=== PATIENT | male | born 1985 | race Caucasian/White ===

== ENCOUNTER 2023-01-16 08:52 | Emergency (ER) | payer SELFPAY ==
--- NOTE | ~2023-01-16 | XR_ITS ---
Right foot Technique: AP, oblique, and lateral views were obtained. Clinical History: Injury Findings: No acute fracture or dislocation is seen. Osseous alignment is anatomic. Joint spaces are p reserved without erosive or degenerative change. Soft tissues are unremarkable. Impression: Unremarkable right foot radiographs. Reviewed, dictated and finalized at location . Impression: Unremarkable right foot radiographs.
[2023-01-16 09:06] VITALS: BP 144/82; PULSE 68; RESP 16; TEMP 36.9; O2SAT 100
--- NOTE | 2023-01-16 09:49 | ED.GENADULT ---
HPI - General Adult General Chief complaint: Extremity Injury, Lower Stated complaint: Foot Injury Source: patient Mode of arrival: ambulatory Limitations: no limitations History of Present Illness HPI narrative: PATIENT PRESENTS FOR EVALUATION OF AN INJURY TO THE RIGHT FOOT THAT OCCURRED JUST PRIOR TO ARRIVAL. 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 HE WAS WEARING STEEL TOED BOOTS BUT THE METAL CAME IN CONTACT WITH A SOFT PORTION OF HIS FOOTWEAR. HE RATES HIS PAIN 6/10 IN SEVERITY. HE HAS SOME REDNESS THE AFFECTED AREA. HE IS UP-TO-DATE ON TETANUS. HE IS NOT DIABETIC. HE IS ABLE TO AMBULATE BUT STATES WEIGHTBEARING MAKES HIS PAIN WORSE. Related Data Home Medications Medication Instructions Recorded Confirmed No Home Medications 01/16/23 01/16/23 Allergies Allergy/AdvReac Type Severity Reaction Status Date / Time prochlorperazine AdvReac Unknown Muscle Verified 06/15/19 09:56 Spasms Review of Systems Review of Systems: CONSTITUTIONAL: DENIES FEVER, CHILLS, OR SWEATS. EYES: DENIES VISUAL CHANGES, REDNESS, OR DISCHARGE. ENT: DENIES RHINORRHEA, CONGESTION, SORE THROAT, OR OTALGIA. CARDIOVASCULAR: DENIES CHEST PAIN, PALPITATIONS, OR EDEMA. RESPIRATORY: DENIES COUGH OR DYSPNEA. GASTROINTESTINAL: DENIES ABDOMINAL PAIN, NAUSEA, VOMITING, OR DIARRHEA. GENITOURINARY: DENIES DYSURIA OR HEMATURIA. SKIN: REPORTS REDNESS TO THE DORSAL ASPECT OF THE RIGHT FOOT MUSCULOSKELETAL: REPORTS RIGHT FOOT PAIN NEUROLOGIC: DENIES HEADACHE, NUMBNESS, DIZZINESS, OR WEAKNESS. PSYCHIATRIC: DENIES ANXIETY OR DEPRESSION. 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 HEAD: NORMOCEPHALIC, ATRAUMATIC. EYES: PERRLA AND EOMI. ENT: NARES CLEAR, NO RHINORRHEA OR EPISTAXIS. MUCOUS MEMBRANES MOIST. OROPHARYNX WITHOUT TONSILLAR HYPERTROPHY EXUDATE OR OTHER LESIONS. BILATERAL TMS PEARLY RUBI NONBULGING NECK: SUPPLE. NO ADENOPATHY OR MASSES. NO CAROTID BRUITS OR JVD CHEST: CLEAR TO AUSCULTATION. NO RESPIRATORY DISTRESS. NO WHEEZES RALES OR RHONCHI HEART: REGULAR RATE AND RHYTHM. NO MURMUR HEARD. NORMAL PERIPHERAL PULSES. ABDOMEN: SOFT, NONTENDER, NONDISTENDED, NORMAL ACTIVE BOWEL SOUNDS. EXTREMITIES: ABLE TO DORSI AND PLANTAR FLEX THE RIGHT FOOT. ABLE TO WIGGLE ALL DIGITS OF THE RIGHT FOOT. NO TENDERNESS IN RIGHT ANKLE. MILD TENDERNESS NOTED IN AREA OF ERYTHEMA TO DORSAL ASPECT OF RIGHT FOOT SKIN: APPROXIMATELY 4 CM AREA OF ERYTHEMA TO THE DORSAL ASPECT OF THE RIGHT FOOT WITH A 3 MM SCABBED LESION IN THE CENTRAL ASPECT OF THIS NEURO: NO FOCAL DEFICITS. ALERT AND ORIENTED X3. PSYCH: NORMAL MOOD AND AFFECT. Course Course Emergency Course: THIS IS A 37-YEAR-OLD MALE WHO PRESENTED FOR EVALUATION OF AN INJURY TO THE RIGHT FOOT. X-RAY WAS NEGATIVE FOR FRACTURE. EXAM IS CONSISTENT WITH CONTUSION. UP-TO-DATE ON TETANUS. FOLLOW-UP OUTPATIENT THIS WEEK. GO TO THE ER FOR INTRACTABLE PAIN OR SIGNS OF INFECTION. PATIENT IN AGREEMENT CARE Level of Care: Express Care Visit Vital Signs Vital signs: Vital Signs Temperature 36.9 C 01/16/23 09:06 Pulse Rate 68 01/16/23 09
== END 2023-01-16 09:55 | disposition home or self-care (01) ==
PROVIDERS: Emergency Provider Nurse Practitioner; PCP Physician Assistant
DX: S90.31XA Contusion of right foot, initial encounter (principal); W20.8XXA Other cause of strike by thrown, projected or falling object, initial encounter
CPT/HCPCS: 73630; 99203; G0463

== ENCOUNTER 2025-09-25 23:39 | Emergency (ER) | payer OTHER, SELFPAY ==
--- NOTE | ~2025-09-25 | CT_ITS ---
CT ABDOMEN AND PELVIS WITHOUT CONTRAST Clinical History: L flank pain, R/O kidney stone Comparison: None Technique: Unenhanced axial images lung bases to symphysis pubis Coronal, sagittal reformats CT images acquired with automatic exposure control for dose reduction DLP: 211 mGy-cm Findings: Without intravenous contrast, sensitivity for detecting visceral parenchymal abnormalities decreased. Lung bases: Clear. Visualized heart and pericardium: Unremarkable. Liver: Unremarkable. Gallbladder: Unremarkable. Spleen: Unremarkable. Pancreas: Unremarkable. Adrenal glands: Unremarkable. Kidneys: Right kidney- No hydronephrosis. Tiny stones. Left kidney- mild hydronephrosis. Tiny stones. 4 mm UPJ stone Distal esophagus/stomach: Unremarkable. Small bowel loops: Normal caliber and wall thickness. Colon: Normal caliber and wall thickness. Normal RLQ appendix. Nodes: No enlarged nodes. Peritoneum: No ascites. No free intraperitoneal air. Urinary bladder: Unremarkable. Prostate: Unremarkable. Bones: No acute bony abnormality. Soft tissues: Unremarkable. Unopacified abdominal aorta: No aneurysmal dilatation. IMPRESSION: 1. Mild hydronephrosis left kidney due to 4 mm UPJ stone. 2. Small bilateral nephrolithiasis. Reviewed, dictated and finalized at location R. ONAL SECRETARY
[2025-09-25 23:42] VITALS: BP 144/86; PULSE 71; RESP 18; TEMP 36.3; O2SAT 97
[2025-09-26 01:52] VITALS: PULSE 74; RESP 14; O2SAT 98
[2025-09-26 02:01] LABS: Hematocrit 41.9 % (42.0-52.0); Hemoglobin 14.7 g/dL (14.0-18.0); Immature Granulocyte Percent A 0.3 % (0-0.5); Lymphocytes Absolute Auto 1.82 K/mm3 (0.9-3.2); Mean Corpuscular HGB Conc 35.1 g/dl (32-36); Mean Corpuscular Hemoglobin 30.7 pg (26-34); Mean Corpuscular Volume 87.5 fl (80-100); Nucleated Red Blood Cells Absolute Auto 0.000 K/mm3 (0.0-0.012); Nucleated Red Blood Cells Perc 0.0 % (0.0-0.2); Platelet Count Result 199 k/mm3 (150-375); Red Blood Count 4.79 M/mm3 (4.6-6.20); White Blood Count 7.9 K/mm3 (4.5-10.0)
[2025-09-26 02:03] LABS: Add Urine Microscopic? NO; Appearance Urine Clear (Clear); Glucose Urine UA Negative (Negative); Leukocyte Esterase Ur Negative LEU/UL (Negative); Nitrate Urine Negative (Negative); Specific Grav Ur 1.021 (1.001-1.035)
[2025-09-26 02:18] LABS: Alanine Aminotransferase 20 U/L (6-50); Albumin Level 4.3 g/dL (3.5-5.1); Alkaline Phosphatase 97 U/L (38-126); Anion Gap 8 mmol/L (4-12); Aspartate Amino Transferase 21 U/L (17-59); Bilirubin,Total 0.5 mg/dL (0.2-1.3); Blood Urea Nitrogen 17 mg/dL (9-20); Calcium 8.8 mg/dL (8.4-10.2); Carbon Dioxide 25 mmol/L (22-30); Chloride 102 mmol/L (98-107); Estimated CRCL calculation 64 ml/min; Estimated Glomerular Filt Rate 51; Glucose 125 mg/dL (65-110); Potassium 3.9 mmol/L (3.4-5.0); Sodium 135 mmol/L (137-145); Total Protein 7.3 g/dL (6.3-8.2)
--- NOTE | 2025-09-26 02:43 | ED_ITS ---
HPI - Male Genitourinary General Chief complaint: Urogenital-Male <Marge Davis APRN - Last Filed: 09/26/25 04:07> Stated complaint: L flank pain, hx stones <Marge Davis APRN - Last Filed: 09/26/25 04:07> Time Seen by Provider: 09/26/25 01:26 <Marge Davis APRN - Last Filed: 09/26/25 04:07> History of Present Illness HPI Narrative: Patient is a 40-year-old male who presents to the ER with left flank pain that started yesterday. He reports he has a history of kidney stones. Patient reports he has not been evaluated in [place] for kidney stones, as he used to live in [place]. He denies any other medical history relevant to this ER visit. Patient denies recent fevers, urinary symptoms, or hematuria. He reports his last bowel movement was yesterday and it was normal for him. Patient reports he has been taking ibuprofen at home without much relief. He reports the pain is intermittent and radiates from the left flank down towards his pelvis. <Marge Davis APRN - Last Filed: 09/26/25 04:07> Related Data Allergies/Adverse reactions: Allergies Allergy/AdvReac Type Severity Reaction Status Date / Time prochlorperazine AdvReac Unknown Muscle Verified 09/25/25 23:46 Spasms <Marge Davis APRN - Last Filed: 09/26/25 04:07> Review of Systems 2 Review of Systems: All systems reviewed & are unremarkable except as noted in HPI and below <Marge Davis APRN - Last Filed: 09/26/25 04:07> [facility] Past Medical History Medical History: Medical History No pertinent past medical history <Marge Davis APRN - Last Filed: 09/26/25 04:07> Surgical History Surgical History: Surgical History History of surgery on lower extremity <Marge Davis APRN - Last Filed: 09/26/25 04:07> Family History Family History: Family History Mother Family history non-contributory <Marge Davis APRN - Last Filed: 09/26/25 04:07> Social History Social History: Social History Living arrangements: with family 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 HEAD: Normocephalic, atraumatic. NECK: Supple. No adenopathy, no masses. RESPIRATORY: Airway patent, respirations nonlabored. Clear to auscultation bilaterally, no rales, rhonchi, wheezing. CARDIOVASCULAR: Regular rate and rhythm without murmurs, rubs, or gallops. Peripheral pulses 2+ and equal bilaterally. Minimal positive left CVA tenderness ABDOMINAL: Soft, nontender with palpation, nondistended, no hepatosplenomegaly. Normoactive BS. MUSCULOSKELETAL: Moves all extremities. Strength/ROM intact without gross deformities. SKIN: Warm, dry, normal color. No rashes. NEURO: A&O X3. Speech clear. Cranial nerves II-XII intact. No ataxic movements. PSYCHIATRIC: Appropriate mood and affect. Normal interaction. <Marge Davis APRN - Last Filed: 09/26/25 04:07> Course INTELLIGENCE OFFICER BASIC/PA Physician Supervision This visit was performed by both a physician and an APC. I performed all aspects of the MDM as documented. <Fabrizio Key DO - Last Filed: 09/26/25 04:43> Vital Signs Vital signs: Vital Signs Temperature 97.3 F L 09/25/25 23:42 Pulse Rate 71 09/25/25 23:42 Respiratory Rate 18 09/25/25 23:42 Blood Pressure 144/86 H 09/25/25 23:42 Pulse Oximetry 97 09/25/25 23:42 Oxygen Delivery Room Air 09/25/25 23:42 Temperature 97.3 F L 09/25/25 23:42 Pulse Rate 59 L 09/26/25 03:00 Respiratory Rate 17 09/26/25 03:00 Blood Pressure 126/61 09/26/25 03:00 Pulse Oximetry 98 09/26/25 03:00 Oxygen Delivery Room Air 09/25/25 23:42 <Marge Davis, FARROWING WORKER - Last Filed: 09/26/25 04:07> Vital Signs Temperature 97.3 F L 09/25/25 23:42 Pulse Rate 71 09/25/25 23:42 Respiratory Rate 18 09/25/25 23:42 Blood Pressure 144/86 H 09/25/25 23:42 Pulse Oximetry 97 09/25/25 23:42 Oxygen Delivery Room Air 09/25/25 23:42 Temperature 97.3 F L 09/25/25 23:42 Pulse Rate 59 L 09/26/25 03:00 Respiratory Rate 17 09/26/25 03:00 Blood Pressure 126/61 09/26/25 03:00 Pulse Oximetry 98 09/26/25 03:00 Oxygen Delivery Room Air 09/25/25 23:42 <Fabrizio Key, DO - Last Filed: 09/26/25 04:43> [facility] MDM Narrative Medical decision making narrative: Patient is a 40-year-old male who presents to the ER with left flank pain that started yesterday. He reports he has a history of kidney stones. Patient reports he has not been evaluated in [place] for kidney stones, as he used to live in [place]. He denies any other medical history relevant to this ER visit. Patient denies recent fevers, urinary symptoms, or hematuria. He reports his last bowel movement was yesterday and it was normal for him. Patient reports he has been taking ibuprofen at home without much relief. He reports the pain is intermittent and radiates from the left flank down towards his pelvis. Labs Ordered: CBC, CMP, UA Imaging Ordered: CT abdomen pelvis without contrast Medications Ordered: 1 L normal saline IV bolus, Zofran 4 mg IV, morphine 4 mg IV Results: Patient's CT scan indicates mild left hydronephrosis due to a 4 mm calculus in proximal left ureter just beyond the UVJ. There are two 3 mm nonobstructive caliceal calculi in the right kidney. No hydronephrosis of the right. There are also two 3 mm nonobstructing calyceal calculi in the left kidney. The urinary bladder is completely decompressed but otherwise unremarkable. The appendix is normal. Bowel loops are nondilated. No acute inflammatory changes are seen involving the bowel. The liver, gallbladder, pancreas, spleen, and adrenal glands are unremarkable. The aorta is not dilated. Skeletal structures are unremarkable. Diagnosis: L kidney stone Consults: Urology, outpatient Patient Education/Shared MDM: Results of lab work and imaging shared with patient. He endorses improvement of symptoms following medication administration. Extensive discussion between INTELLIGENCE OFFICER BASIC, pt and his . Pt reports he has had much worse kidney stones in the past and he doesn't think he needs immediate involvement with a urologist. He is comfortable following up with them as an outpatient. Pt reports I've passed two in the past. Patient strongly advised to maintain hydration status upon discharge and follow- up with urology as soon as possible for further evaluation and treatment. He will be discharged home with a prescription for Zofran, Flomax, and [place]. Strict return precautions provided. Patient verbalized understanding and is in agreement with plan. Vital signs stable at time of discharge. All questions answered. <Marge Davis APRN - Last Filed: 09/26/25 04:07> Differential Diagnosis Differential Diagnosis: Acute kidney injury, urinary tract infection, kidney stone <Marge Davis APRN - Last Filed: 09/26/25 04:07> Lab Data [facility] Lab Attestation statement: I personally reviewed the patient's lab results. <Marge Davis APRN - Last Filed: 09/26/25 04:07> Result diagrams: 09/26/25 01:49 09/26/25 01:49 <Marge Davis APRN - Last Filed: 09/26/25 04:07> Labs: Lab Results 09/26/25 09/26/25 Range/Units 01:49 01:50 WBC 7.9 (4.5-10.0) K/mm3 RBC 4.79 (4.6-6.20) M/mm3 Hgb 14.7 (14.0-18.0) g/dL Hct 41.9 L (42.0-52.0) % MCV 87.5 (80-100) fl MCH 30.7 (26-34) pg MCHC 35.1 (32-36) g/dl RDW 12.7 (11.5-14.5) % Plt Count 199 (150-375) k/mm3 MPV 9.9 (7.4-10.4) fl Immature Gran % (Auto) 0.3 (0-0.5) % Neut % (Auto) 64.6 (45.5-73.1) % Lymph % (Auto) 23.0 (18.3-44.2) % [place] % (Auto) 7.2 (2.6-8.5) % Eos % (Auto) 4.0 (0-4.4) % Baso % (Auto) 0.9 (0.2-1.2) % Lymph # (Auto) 1.82 (0.9-3.2) K/mm3 [place] # (Auto) 0.6 (0.1-0.6) K/mm3 Eos # (Auto) 0.3 (0-0.3) K/mm3 Baso # (Auto) 0.1 (0.0-0.1) K/mm3 Abs Immat Gran (auto) 0.02 (0.00-0.031) K/mm3 Absolute Neuts (auto) 5.1 (1.3-6.7) K/mm3 Absolute Nucleated RBC 0.000 (0.0-0.012) K/mm3 Nucleated RBC % 0.0 (0.0-0.2) % Sodium 135 L (137-145) mmol/L Potassium 3.9 (3.4-5.0) mmol/L Chloride 102 (98-107) mmol/L Carbon Dioxide 25 (22-30) mmol/L Anion Gap 8 (4-12) mmol/L BUN 17 (9-20) mg/dL Creatinine 1.51 H (0.7-1.3) mg/dL Estim Creat Clear Calc 64 ml/min Estimated GFR 51 L (59 - ) Glucose 125 H (65-110) mg/dL Calcium 8.8 (8.4-10.2) mg/dL Total Bilirubin 0.5 (0.2-1.3) mg/dL AST 21 (17-59) U/L ALT 20 (6-50) U/L Alkaline Phosphatase 97 (38-126) U/L Total Protein 7.3 (6.3-8.2) g/dL Albumin 4.3 (3.5-5.1) g/dL Urine Color Yellow (Yellow) Urine Appearance Clear (Clear) Urine pH 5.0 (5.0-9.0) Ur Specific [place] 1.021 (1.001-1.035) Urine Protein Negative (Negative) mg/dL Urine Glucose (UA) Negative (Negative) mg/dL Urine Ketones Trace H (Negative) mg/dL Ur Blood (Man) Negative (Negative) Urine Nitrate Negative (Negative) Urine Bilirubin Negative (Negative) Urine Urobilinogen 0.2 (<2.0) mg/dL Leukocyte Esterase Rfl Negative (Negative) ALICIA/UL <Marge Davis, FARROWING WORKER - Last Filed: 09/26/25 04:07> Lab Results 09/26/25 09/26/25 Range/Units 01:49 01:50 WBC 7.9 (4.5-10.0) K/mm3 RBC 4.79 (4.6-6.20) M/mm3 Hgb 14.7 (14.0-18.0) g/dL Hct 41.9 L (42.0-52.0) % MCV 87.5 (80-100) fl MCH 30.7 (26-34) pg MCHC 35.1 (32-36) g/dl RDW 12.7 (11.5-14.5) % Plt Count 199 (150-375) k/mm3 MPV 9.9 (7.4-10.4) fl Immature Gran % (Auto) 0.3 (0-0.5) % Neut % (Auto) 64.6 (45.5-73.1) % Lymph % (Auto) 23.0 (18.3-44.2) % [place] % (Auto) 7.2 (2.6-8.5) % Eos % (Auto) 4.0 (0-4.4) % Baso % (Auto) 0.9 (0.2-1.2) % Lymph # (Auto) 1.82 (0.9-3.2) K/mm3 [place] # (Auto) 0.6 (0.1-0.6) K/mm3 Eos # (Auto) 0.3 (0-0.3) K/mm3 Baso # (Auto) 0.1 (0.0-0.1) K/mm3 Abs Immat Gran (auto) 0.02 (0.00-0.031) K/mm3 Absolute Neuts (auto) 5.1 (1.3-6.7) K/mm3 Absolute Nucleated RBC 0.000 (0.0-0.012) K/mm3 Nucleated RBC % 0.0 (0.0-0.2) % Sodium 135 L (137-145) mmol/L Potassium 3.9 (3.4-5.0) mmol/L Chloride 102 (98-107) mmol/L Carbon Dioxide 25 (22-30) mmol/L Anion Gap 8 (4-12) mmol/L BUN 17 (9-20) mg/dL Creatinine 1.51 H (0.7-1.3) mg/dL Estim Creat Clear Calc 64 ml/min Estimated GFR 51 L (59 - ) Glucose 125 H (65-110) mg/dL Calcium 8.8 (8.4-10.2) mg/dL Total Bilirubin 0.5 (0.2-1.3) mg/dL AST 21 (17-59) U/L ALT 20 (6-50) U/L Alkaline Phosphatase 97 (38-126) U/L Total Protein 7.3 (6.3-8.2) g/dL Albumin 4.3 (3.5-5.1) g/dL Urine Color Yellow (Yellow) Urine Appearance Clear (Clear) Urine pH 5.0 (5.0-9.0) Ur Specific [place] 1.021 (1.001-1.035) Urine Protein Negative (Negative) mg/dL Urine Glucose (UA) Negative (Negative) mg/dL Urine Ketones Trace H (Negative) mg/dL Ur Blood (Man) Negative (Negative) Urine Nitrate Negative (Negative) Urine Bilirubin Negative (Negative) Urine Urobilinogen 0.2 (<2.0) mg/dL Leukocyte Esterase Rfl Negative (Negative) ALICIA/UL <Fabrizio Key, - Last Filed: 09/26/25 04:43> Imaging Data Attestation: I personally reviewed and interpreted this imaging study as follows: < Marge Davis APRN - Last Filed: 09/26/25 04:07> Radiologist's impression: Patient's CT scan indicates mild left hydronephrosis due to a 4 mm calculus in proximal left ureter just beyond the UVJ. There are two 3 mm nonobstructive caliceal calculi in the right kidney. No hydronephrosis of the right. There are also two 3 mm nonobstructing calyceal calculi in the left kidney. The urinary bladder is completely decompressed but otherwise unremarkable. The appendix is normal. Bowel loops are nondilated. No acute inflammatory changes are seen involving the bowel. The liver, gallbladder, pancreas, spleen, and adrenal glands are unremarkable. The aorta is not dilated. Skeletal structures are unremarkable. <Marge Davis APRN - Last Filed: 09/26/25 04:07> Discharge Plan Discharge Clinical Impression: Hydronephrosis of left kidney, Calculus of proximal left ureter, Flank pain, left side <Marge Davis APRN - Last Filed: 09/26/25 04:07> Patient Disposition: Home <Marge Davis APRN - Last Filed: 09/26/25 04:07> Condition: Stable <Marge Davis APRN - Last Filed: 09/26/25 04:07> Instructions: Antibiotic Form, Kidney Stones (ED), Flank Pain (ED) <Marge Davis APRN - Last Filed: 09/26/25 04:07> Additional Instructions: Please return to the ER with any worsening symptoms. Follow-up with urology as soon as possible for further evaluation and treatment. You may call [phone] to make a follow-up appointment. You may take Ibuprofen 800mg every eight hours and/or [place] for pain control. Please remember to drink lots of water! <Marge Davis APRN - Last Filed: 09/26/25 04:07> Patient Language: Belarusian <Marge Davis APRN - Last Filed: 09/26/25 04:07> Prescriptions: New tamsulosin 0.4 mg capsule 0.4 mg PO DAILY Qty: 7 0RF hydrocodone-acetaminophen 5-300 mg tablet 1 tablet PO Q6H PRN (Reason: pain) Qty: 10 0RF ondansetron 4 mg tablet,disintegrating 4 mg PO Q6H PRN (Reason: nausea and vomiting) Qty: 14 0RF <Marge Davis APRN - Last Filed: 09/26/25 04:07> Follow-up/Referrals: Jeremiah Og MD [Physician, Urology] Melba,MAURICE Espinoza [Primary Care Provider, Unknown] <Marge Davis APRN - Last Filed: 09/26/25 04:07> Time of Disposition: 04:06 <Marge Davis APRN - Last Filed: 09/26/25 04:07> 04:06 <Fabrizio Key DO - Last Filed: 09/26/25 04:43>
[2025-09-26] MEDS: ONDANSETRON INJ 4 MG/2 ML VIAL IV PUSH (02:55)
[2025-09-26] MEDS: SODIUM CHLORIDE 0.9% IV 1,000 ML 999 ML IV CONT (02:55)
[2025-09-26] MEDS: MORPHINE SULFATE (*CRX) 4 MG/ML INJ IV PUSH (02:55)
[2025-09-26 03:00] VITALS: BP 126/61; PULSE 59; RESP 17; O2SAT 98
[2025-09-26] MEDS: TAMSULOSIN HCL 0.4 MG CAPSULE PO (04:21)
[2025-09-26 05:02] VITALS: BP 140/86; PULSE 61; RESP 22; TEMP 36.6; O2SAT 96
== END 2025-09-26 04:25 | disposition home or self-care (01) ==
PROVIDERS: Emergency Provider Registered Nurse; PCP Physician Assistant
DX: N13.2 Hydronephrosis with renal and ureteral calculous obstruction (principal); Z87.442 Personal history of urinary calculi
CPT/HCPCS: 36415; 74176; 80053; 81003; 85025; 96361; 96374; 96375; 99284; A9270; J2270; J2405; J7030

== ENCOUNTER 2025-09-29 06:59 | Emergency (ER) | payer OTHER, SELFPAY ==
--- NOTE | ~2025-09-29 | CT_ITS ---
EXAM/PROCEDURE: CT abdomen pelvis wo con HISTORY: LT FLANK PAIN, known renal stones COMPARISON: 09/26/2025 TECHNIQUE: Noncontrast CT of the abdomen and pelvis FINDINGS: Mild to moderately severe left-sided hydronephrosis with 4 mm proximal left ureteral stone at or just beyond the UPJ not significantly change in position or appearance. Punctate mid and upper pole left-sided kidney stones also again noted. The remainder of the left ureter, urinary bladder and visualized right ureter unremarkable. No hydronephrosis on the right side. 2 nonobstructing punctate stones in the mid and upper pole of the right kidney. The remainder the exam is unchanged in appearance. IMPRESSION: Directed noncontrast exam demonstrating no significant interval change in mild to moderate left-sided hydronephrosis and proximal left ureteral 4 mm stone. Reviewed, dictated and finalized at location A. BLANKER OPERATOR
--- OUTSIDE RECORDS SUMMARY | 2025-09-29 07:02 | XMS_ITS | Clinical Summary ---
Author Organization [facility] Address [address] [place] [id number] Care Team Providers Care Facilities Administrator Name Role Phone Olga Reilly Primary Care Pr ovider Allergies Active Allergy Reactions Criticality Noted Date Comments Prochlorperazine Medications No known medications Active Problems Problem Noted Date Diagnosed Date Closed fracture of left distal tibia 08/28/2018 Atopic rhinitis 03/25/2014 Overview (01/26/2017): Allergic rhinitis Immunizations Immunization Administration Dates Next Due Influenza, Quadrivalent, Spl it, Preservative Free, Intramuscular 08/09/2016 Influenza, Trivalent, IM (MDV) 07/22/2013 TD Preservative Free 06/11/2013 Surgical History Surgery Date Site/Laterality Comments EYE SURGERY upper eyelid sutured WISDOM TOOTH EXTRACTION TIBIA FRACTURE SURGERY Left Medical History Medical History Date Comments No pertinent past medical history Family History Medical History Relation Name Comments Other Brother 1 dario Alive and well; Other Brother 2 miriam fatty liver dis ease; Other Father Alive and well; Hypertension Mother Hypertension; Other Mother Chrohn's diseae s; Heart disease Other Grandfather Heart disease; Relation Name Status Comments Brother 1 dario Alive Brother 2 miriam Father Alive Mother Other Grandfather Social History Tobacco Use Types Packs/Day Years Used Date Smoking Tobacco: Never Smokeless Tobacco: Never Tobacco Cessation:Counseling Given: No Alcohol Use Standard Drinks/Week Comments Yes 0 (1 standard drink = 0.6 oz pur e alcohol) rare Sex and Gender Information Value Date Recorded Sex Assigned at Not on file Legal Sex Male 10:12 AM INTERNAL CONSULTANT Gender Identity Male 10/05/2021 11:00 PM INTERNAL CONSULTANT Sexual Orientation Not on file Last Filed Vital Signs Vital Sign Reading Time Taken Comments Blood Pressure 152/90 01/25/2025 9:35 AM CDT Pulse 92 01/25/2025 9:35 AM CDT Temperature 36.8 C (98.2 F) 01/25/2025 9:35 AM CDT Respiratory Rate 20 01/25/2025 9:35 AM CDT Oxygen Saturation 99% 01/25/2025 9:35 AM CDT Inhaled Oxygen Concentration - - Weight 80.3 kg (177 lb) 01/25/2025 9:35 AM CDT Height 182.9 cm (6') 11/15/2021 2:11 PM INTERNAL CONSULTANT Body Mass Index 24.01 11/15/2021 2:11 PM INTERNAL CONSULTANT Plan of Treatment Health Maintenance Due Date Last Done Comments Depression Screening 1984 Hepatitis C Screening 1984 Varicella Vaccines (1 of 2 - 13+ 2-dose series) 1997 Regular Well Visit/Exam 18-64 2002 HPV Vaccines (1 - 3-dose SCDM series) 2011 DTaP/Tdap/Td Vaccine (6 - Tdap) 06/12/2013 06/11/2013, 06/10/1998, 04/26/1989, Additional history exists Covid-19 Vaccine ( - season) 2025 01/21/2021, 01/03/2021 Influenza Vaccine (#1) 2025 08/09/2016, 2012 Hepatitis B Screening Completed 09/06/2001, 986 Pneumococcal vaccine <65 Aged Out No longer eligible based on patient's age to complete this topic Medical Devices Implanted Type Area Health Promotion Coordinator Device Identifier Shelf Expiration Date Model / Serial / Lot Synthes .455s Expert 10mm 375mm Cannulated Proximal Bend Tibial Round Nail - [id number] Implanted:Qty: 2 on 09/06/2018 by Sergio Johnson MD at [facility] Left: Tibia Synthes I 04.034.455S / / Synthes 204.840 3.5mm 6mm 40mm 2.5mm Self Tap Small Hexagonal Socket Low Profile - [id number] Implanted:Qty: 1 on 09/06/2018 by Sergio Johnson MD at [facility] Left: Tibia Synthes I 204.840 / / Synthes 04.005.528 5mm 4.3mm 38mm Lock Self Tap Blunt Tip 2 Lead Tibial T25 Full - [id number] Implanted:Qty: 1 on 09/06/2018 by Sergio Johnson MD at [facility] Left: Tibia Synthes I 04.005.528 / / Synthes 04.005.526 5mm 4.3mm 36mm Lock Self Tap Blunt Tip 2 Lead Tibial T25 Full - [id number] Implanted:Qty: 1 on 09/06/2018 by Sergio Johnson MD at [facility] Left: Tibia Synthes I 04.005.526 / / Synthes 04.005.522 5mm 4.3mm 32mm Lock Self Tap Blunt Tip 2 Lead Tibial T25 Full - [id number] Implanted:Qty: 1 on 09/06/2018 by Sergio Johnson MD at [facility] Left: Tibia Synthes I 04.005.522 / / Synthes 04.005.534 5mm 4.3mm 44mm Lock Self Tap Blunt Tip 2 Lead Tibial T25 Full - [id number] Implanted:Qty: 2 on 09/06/2018 by Sergio Johnson MD at [facility] Left: Tibia Synthes I 04.005.534 / / Insurance [facility] [id number] [place] [address] [phone] [place] [address] Advance Directives For more information, please contact: [phone] * Full Code (Latest Code Status on File) Date Activated Date Inactivated Comments 09/06/2018 12:45 PM 09/08/2018 4:27 PM Care Teams Facilities Administrator Relationship Specialty Start Date End Date Olga Reilly PA PCP - General Physician Beam Saw Operator 08/29/18
--- OUTSIDE RECORDS SUMMARY | 2025-09-29 07:02 | XMS_ITS | Clinical Summary ---
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 Gender Identity Not on file Sexual Orientation Not on file Plan of Treatment Health Maintenance Due Date Last Done Comments Hepatitis C Virus (HCV) Screening 1984 TdaP Immunization 1984 Hepatitis B Immunization (3 of 3 - 3-dose series) 11/01/2001 09/06/2001, 06/02/1986 Human Papillomavirus (HPV) Immunization (1 - 3-dose SCDM series) 2011 Influenza Immunization (#1) 2025 SARS-COV-2 Immunization ( season) 2025 Respiratory Syncytial Virus (RSV) Immunization (Adult) (1 - 1-dose 75+ series) 2059 DTaP/Tdap/Td Immunization Discontinued 1997, 04/26/1989, 11/11/1985, Additional history exists Meningococcal Immunization (ACWY) Aged Out No longer eligible based on patient's age to complete this topic Pneumococcal Immunization Combined Aged Out No longer eligible based on patient's age to complete this topic Rotavirus Immunization Aged Out No lo nger eligible based on patient's age to complete this topic
--- OUTSIDE RECORDS SUMMARY | 2025-09-29 07:02 | XMS_ITS | Clinical Summary ---
Author Organization [facility] lin Address [address] [place] [address] Care Team Providers Care Apprentice Cosmetologist Name Role Phone No, Pcp COMPOSITE ENGINEER Primary Care Provider Unavailabl e Social History Tobacco Use Types Packs/Day Years Used Date Smoking Tobacco: Never Assessed Sex and Gender Information Value Date Recorded Sex Assigned at Not on file Legal Sex Male 10:03 AM EDT Gender Identity Not on file Sexual Orientation Not on file Plan of Treatment Not on file Medical Devices Not on file Care Teams Apprentice Cosmetologist Relationship Specialty Start Date End Date No, Pcp, COMPOSITE ENGINEER N/A Do not use PCP - General Family Medicine 07/19/20
[2025-09-29 07:16] VITALS: BP 148/96; PULSE 68; RESP 16; TEMP 36.4; O2SAT 98
--- NOTE | 2025-09-29 08:02 | ED.GENADULT ---
HPI - General Adult General Chief complaint: Urogenital-Male Stated complaint: kidney stones Time Seen by Provider: 09/29/25 08:01 History of Present Illness HPI narrative: 40-year-old male presents emergency department for worsening flank pain. Is associated nausea nonbilious nonbloody vomiting. He has been taking Zofran and Flomax minimal relief. Has a history kidney stones states this feels just like his kidney stones he has never required intervention for lithotripsy. Denies any fevers chills no rash states the pain is severe radiates into his groin. 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 EYES: EOMI, conjunctiva normal ENT: Hearing grossly intact LUNGS: Nonlabored breathing. HEART: [Regular rate and rhythm] ABD: [Soft], [nontender to palpation] he does have flank tenderness on the right. No skin changes. EXT: Normal range of motion SKIN: [No rashes or lesions.] NEURO: [Alert. No gross focal sensory or strength deficits.] PSYCH: Normal affect Course Vital Signs Vital signs: Vital Signs Temperature 36.4 C 09/29/25 07:16 Pulse Rate 68 09/29/25 07:16 Respiratory Rate 16 09/29/25 07:16 Blood Pressure 148/96 H 09/29/25 07:16 Pulse Oximetry 98 09/29/25 07:16 Oxygen Delivery Room Air 09/29/25 07:16 Temperature 36.4 C 09/29/25 07:16 Pulse Rate 70 09/29/25 09:43 Respiratory Rate 18 09/29/25 09:43 Blood Pressure 125/85 09/29/25 09:43 Pulse Oximetry 97 09/29/25 09:43 Oxygen Delivery Room Air 09/29/25 07:16 MDM Differential Diagnosis Differential Diagnosis: 40-year-old male presents with flank pain. Suspect renal colic but potentially complicated by infectious process or hydronephrosis less likely acute renal failure. Will obtain IV access basic labs repeat CT abdomen pelvis without IV contrast multimodal pain control implant for evaluation after workup treatment. Results and re-evaluation On re-evaluation the patient feels much improved. Tolerating oral intake. CT scan shows 4 mm obstructing stone but urine without any evidence of infection. Otherwise labs again reviewed within appropriate limits. Will send him home with Toradol for pain, ARDS prescriptions for [place] and Zofran and Flomax. He has follow-up with Urology. Otherwise all questions answered her questions discussed elevated if he develops any new or concerning symptoms. Discharged in stable condition Medical Records I have reviewed the following patient records and this information was taken into consideration when formulating the assessment and plan.: previous labs and previous ER visits Lab Data [facility] Lab Attestation statement: I personally reviewed the patient's lab results. 09/29/25 08:13 09/29/25 08:13 Labs: Lab Results 09/29/25 Range/Units 08:13 WBC 5.1 (4.5-10.0) K/mm3 RBC 5.00 (4.6-6.20) M/mm3 Hgb 15.2 (14.0-18.0) g/dL Hct 43.9 (42.0-52.0) % MCV 87.8 (80-100) fl MCH 30.4 (26-34) pg MCHC 34.6 (32-36) g/dl RDW 12.3 (11.5-14.5) % Plt Count 206 (150-375) k/mm3 MPV 9.9 (7.4-10.4) fl Immature Gran % (Auto) 0.2 (0-0.5) % Neut % (Auto) 70.2 (45.5-73.1) % Lymph % (Auto) 19.2 (18.3-44.2) % [place] % (Auto) 6.5 (2.6-8.5) % Eos % (Auto) 2.9 (0-4.4) % Baso % (Auto) 1.0 (0.2-1.2) % Lymph # (Auto) 0.98 (0.9-3.2) K/mm3 [place] # (Auto) 0.3 (0.1-0.6) K/mm3 Eos # (Auto) 0.2 (0-0.3) K/mm3 Baso # (Auto) 0.1 (0.0-0.1) K/mm3 Abs Immat Gran (auto) 0.01 (0.00-0.031) K/mm3 Absolute Neuts (auto) 3.6 (1.3-6.7) K/mm3 Absolute Nucleated RBC 0.000 (0.0-0.012) K/mm3 Nucleated RBC % 0.0 (0.0-0.2) % Sodium 134 L (137-145) mmol/L Potassium 4.2 (3.4-5.0) mmol/L Chloride 100 (98-107) mmol/L Carbon Dioxide 28 (22-30) mmol/L Anion Gap 6 (4-12) mmol/L BUN 18 (9-20) mg/dL Creatinine 1.26 (0.7-1.3) mg/dL Estim Creat Clear Calc 76 ml/min Estimated GFR > 60 (59 - ) Glucose 101 (65-110) mg/dL Calcium 9.1 (8.4-10.2) mg/dL Total Bilirubin 0.8 (0.2-1.3) mg/dL AST 30 (17-59) U/L ALT 28 (6-50) U/L Alkaline Phosphatase 89 (38-126) U/L Total Protein 7.7 (6.3-8.2) g/dL Albumin 4.4 (3.5-5.1) g/dL Lipase 70 (23-300) U/L Urine Color Yellow (Yellow) Urine Appearance Clear (Clear) Urine pH 6.0 (5.0-9.0) Ur Specific [place] 1.019 (1.001-1.035) Urine Protein Negative (Negative) mg/dL Urine Glucose (UA) Negative (Negative) mg/dL Urine Ketones Negative (Negative) mg/dL Ur Blood (Man) 2+ H (Negative) Urine Nitrate Negative (Negative) Urine Bilirubin Negative (Negative) Urine Urobilinogen 1.0 (<2.0) mg/dL Leukocyte Esterase Rfl Negative (Negative) ALICIA/UL Urine RBC 51-100 H (0-2) /hpf Urine WBC 0-5 (0-3) /hpf Ur Squamous Epith Cells None seen (Few) /hpf Urine Bacteria None seen /hpf Urine Casts 0-2 Imaging Data Radiologist's impression: ITS Impressions Abdomen/Pelvis CT 09/29/25 08:53 IMPRESSION: Directed noncontrast exam demonstrating no significant interval change in mild to moderate left-sided hydronephrosis and proximal left ureteral 4 mm stone. Discharge Plan Discharge Clinical Impression: Kidney stone Patient Disposition: Home Condition: Stable Instructions: Kidney Stones (ED) Patient Language: Vietnamese Prescriptions: New ketorolac 10 mg tablet 10 mg PO Q8H PRN (Reason: pain) Qty: 14 0RF Rx Instructions: maximum total duration of 5 days from all oral, intranasal, or parenteral formulations No Action tamsulosin 0.4 mg capsule 0.4 mg PO DAILY Qty: 7 0RF hydrocodone-acetaminophen 5-300 mg tablet 1 tablet PO Q6H PRN (Reason: pain) Qty: 10 0RF ondansetron 4 mg tablet,disintegrating 4 mg PO Q6H PRN (Reason: nausea and vomiting) Qty: 14 0RF Follow-up/Referrals: Melba,MAURICE Espinoza [Primary Care Provider, Unknown] Stand Alone Forms: Work/School Release IP Time of Disposition: 09:32
[2025-09-29 08:22] LABS: Hematocrit 43.9 % (42.0-52.0); Hemoglobin 15.2 g/dL (14.0-18.0); Immature Granulocyte Percent A 0.2 % (0-0.5); Lymphocytes Absolute Auto 0.98 K/mm3 (0.9-3.2); Mean Corpuscular HGB Conc 34.6 g/dl (32-36); Mean Corpuscular Hemoglobin 30.4 pg (26-34); Mean Corpuscular Volume 87.8 fl (80-100); Nucleated Red Blood Cells Absolute Auto 0.000 K/mm3 (0.0-0.012); Nucleated Red Blood Cells Perc 0.0 % (0.0-0.2); Platelet Count Result 206 k/mm3 (150-375); Red Blood Count 5.00 M/mm3 (4.6-6.20); White Blood Count 5.1 K/mm3 (4.5-10.0)
[2025-09-29 08:25] LABS: Add Urine Microscopic? YES; Appearance Urine Clear (Clear); Glucose Urine UA Negative (Negative); Leukocyte Esterase Ur Negative LEU/UL (Negative); Nitrate Urine Negative (Negative); Non Pathogenic Casts 0-2; Specific Grav Ur 1.019 (1.001-1.035)
[2025-09-29] MEDS: HYDROmorphone HCL INJ (*CRX) 1 MG/ML SYR 0.5 MG IV PUSH (08:31)
[2025-09-29] MEDS: KETOROLAC 30 MG/ML VIAL (*BKC) IV PUSH (08:32)
[2025-09-29] MEDS: ONDANSETRON INJ 4 MG/2 ML VIAL IV PUSH (08:32)
[2025-09-29 08:36] VITALS: BP 140/92; PULSE 73; RESP 18; O2SAT 99
[2025-09-29 08:46] LABS: Alanine Aminotransferase 28 U/L (6-50); Albumin Level 4.4 g/dL (3.5-5.1); Alkaline Phosphatase 89 U/L (38-126); Anion Gap 6 mmol/L (4-12); Aspartate Amino Transferase 30 U/L (17-59); Bilirubin,Total 0.8 mg/dL (0.2-1.3); Blood Urea Nitrogen 18 mg/dL (9-20); Calcium 9.1 mg/dL (8.4-10.2); Carbon Dioxide 28 mmol/L (22-30); Chloride 100 mmol/L (98-107); Estimated CRCL calculation 76 ml/min; Estimated Glomerular Filt Rate > 60; Glucose 101 mg/dL (65-110); Lipase 70 U/L (23-300); Potassium 4.2 mmol/L (3.4-5.0); Sodium 134 mmol/L (137-145); Total Protein 7.7 g/dL (6.3-8.2)
[2025-09-29 09:43] VITALS: BP 125/85; PULSE 70; RESP 18; O2SAT 97
== END 2025-09-29 09:49 | disposition home or self-care (01) ==
PROVIDERS: Emergency Provider Emergency Medicine; PCP Physician Assistant
DX: N13.2 Hydronephrosis with renal and ureteral calculous obstruction (principal); Z87.442 Personal history of urinary calculi
CPT/HCPCS: 36415; 74176; 80053; 81001; 83690; 85025; 96374; 96375; 99284; J1171; J1885; J2405

== ENCOUNTER 2025-10-12 08:51 | Emergency (ER) | payer OTHER, SELFPAY ==
--- NOTE | ~2025-10-12 | CT_ITS ---
CT ABDOMEN AND PELVIS WITHOUT CONTRAST Clinical History: LLQ pain, hx stone Comparison: 09/29/2025 Technique: Unenhanced axial images lung bases to symphysis pubis Coronal, sagittal reformats CT images acquired with automatic exposure control for dose reduction DLP: 232 mGy-cm Findings: Without intravenous contrast, sensitivity for detecting visceral parenchymal abnormalities decreased. Lung bases: Clear. Visualized heart and pericardium: Unremarkable. Liver: Unremarkable. Gallbladder: Unremarkable. Spleen: Unremarkable. Pancreas: Unremarkable. Adrenal glands: Unremarkable. Kidneys: Right kidney- No hydronephrosis. Small stone. Left kidney- mild hydronephrosis. Small stone. Distal esophagus/stomach: Unremarkable. Small bowel loops: Normal caliber and wall thickness. Colon: Normal caliber and wall thickness. Normal RLQ appendix. Nodes: No enlarged nodes. Peritoneum: No ascites. No free intraperitoneal air. Urinary bladder: 5 mm stone left UVJ. Prostate: Unremarkable. Bones: No acute bony abnormality. Soft tissues: Unremarkable. Unopacified abdominal aorta: No aneurysmal dilatation. IMPRESSION: 1. Mild hydronephrosis left kidney due to 5 mm stone at UVJ, that has progressed from UPJ on prior scan. 2. Small bilateral nephrolithiasis. Reviewed, dictated and finalized at location [facility] IMPRESSION: 1. Mild hydronephrosis left kidney due to 5 mm stone at UVJ, that has progress ed from UPJ on prior scan. 2. Small bilateral nephrolithiasis.
[2025-10-12 09:01] VITALS: BP 160/94; PULSE 76; RESP 20; TEMP 36.4; O2SAT 99
[2025-10-12 09:22] LABS: Hematocrit 41.8 % (42.0-52.0); Hemoglobin 14.7 g/dL (14.0-18.0); Immature Granulocyte Percent A 0.4 % (0-0.5); Lymphocytes Absolute Auto 1.50 K/mm3 (0.9-3.2); Mean Corpuscular HGB Conc 35.2 g/dl (32-36); Mean Corpuscular Hemoglobin 30.4 pg (26-34); Mean Corpuscular Volume 86.5 fl (80-100); Nucleated Red Blood Cells Absolute Auto 0.000 K/mm3 (0.0-0.012); Nucleated Red Blood Cells Perc 0.0 % (0.0-0.2); Platelet Count Result 216 k/mm3 (150-375); Red Blood Count 4.83 M/mm3 (4.6-6.20); White Blood Count 4.9 K/mm3 (4.5-10.0)
[2025-10-12 09:24] LABS: Add Urine Microscopic? YES; Appearance Urine Clear (Clear); Glucose Urine UA Negative (Negative); Leukocyte Esterase Ur Negative LEU/UL (Negative); Nitrate Urine Negative (Negative); Non Pathogenic Casts 0-2; Specific Grav Ur 1.005 (1.001-1.035)
--- OUTSIDE RECORDS SUMMARY | 2025-10-12 09:28 | XMS_ITS | Clinical Summary ---
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 Gender Identity Male 10/05/2021 11:00 PM IT HELP DESK MANAGER Sexual Orientation Not on file Last Filed [...] Height 182.9 cm (6') 11/15/2021 2:11 PM IT HELP DESK MANAGER Body Mass Index 24.01 11/15/2021 2:11 PM IT HELP DESK MANAGER Plan of Treatment Health Maintenance Due Date [...] this topic Medical Devices Implanted Type Area Surgery Aide Device Identifier Shelf Expiration Date Model / Serial / Lot Synthes .455s Expert 10mm 375mm Cannulated Proximal Bend Tibial Round Nail - [id number] Implanted:Qty: 2 on 09/06/2018 by Sergio Johnson MD at [facility] Left: Tibia Synthes I [id number] / / Synthes 204.840 3.5mm 6mm 40mm 2.5mm Self Tap Small Hexagonal Socket Low Profile - [id number] Implanted:Qty: 1 on 09/06/2018 by Sergio Johnson MD at [facility] Left: Tibia Synthes I 204.840 / / Synthes 04.005.528 5mm 4.3mm 38mm Lock Self Tap Blunt Tip 2 Lead Tibial T25 Full - [id number] Implanted:Qty: 1 on 09/06/2018 by Sergio Johnson MD at [facility] Left: Tibia Synthes I 04.005.528 / / Synthes 04.005.526 5mm 4.3mm 36mm Lock Self Tap Blunt Tip 2 Lead Tibial T25 Full - [id number] Implanted:Qty: 1 on 09/06/2018 by Sergio Johnson MD at [facility] Left: Tibia Synthes I 04.005.526 / / Synthes 04.005.522 5mm 4.3mm 32mm Lock Self Tap Blunt Tip 2 Lead Tibial T25 Full - [id number] Implanted:Qty: 1 on 09/06/2018 by Sergio Johnson MD at [facility] Left: Tibia Synthes I 04.005.522 / / Synthes 04.005.534 5mm 4.3mm 44mm Lock Self Tap Blunt Tip 2 Lead Tibial T25 Full - [id number] Implanted:Qty: 2 on 09/06/2018 by Sergio Johnson MD at [facility] Left: Tibia Synthes I 04.005.534 / / Insurance [facility] [id number] [place] [address] [id number] [place] [address] Advance Directives For more information, please contact: [phone] * Full Code (Latest Code Status on File) Date Activated Date Inactivated Comments 09/06/2018 12:45 PM 09/08/2018 4:27 PM Care Teams Bias Binding Folder Relationship Specialty Start Date End Date Olga Reilly PA PCP - General Physician Armature Inspector 08/29/18
--- OUTSIDE RECORDS SUMMARY | 2025-10-12 09:28 | XMS_ITS | Clinical Summary ---
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
[2025-10-12 09:49] LABS: Alanine Aminotransferase 23 U/L (6-50); Albumin Level 4.3 g/dL (3.5-5.1); Alkaline Phosphatase 95 U/L (38-126); Anion Gap 8 mmol/L (4-12); Aspartate Amino Transferase 21 U/L (17-59); Bilirubin,Total 0.7 mg/dL (0.2-1.3); Blood Urea Nitrogen 15 mg/dL (9-20); Calcium 9.0 mg/dL (8.4-10.2); Carbon Dioxide 25 mmol/L (22-30); Chloride 100 mmol/L (98-107); Estimated CRCL calculation 99 ml/min; Estimated Glomerular Filt Rate > 60; Glucose 102 mg/dL (65-110); Potassium 4.1 mmol/L (3.4-5.0); Sodium 133 mmol/L (137-145); Total Protein 7.4 g/dL (6.3-8.2)
[2025-10-12 09:57] VITALS: BP 146/90; PULSE 65; RESP 17; O2SAT 99
[2025-10-12] MEDS: SODIUM CHLORIDE 0.9% IV 1,000 ML 999 ML IV CONT (10:15)
[2025-10-12] MEDS: ONDANSETRON INJ 4 MG/2 ML VIAL IV PUSH (10:15)
[2025-10-12] MEDS: HYDROmorphone HCL INJ (*CRX) 1 MG/ML SYR 0.5 MG IV PUSH (10:16)
--- NOTE | 2025-10-12 10:19 | ED.MALEGU ---
HPI - Male Genitourinary General Chief complaint: Urogenital-Male Stated complaint: kidney stone Time Seen by Provider: 10/12/25 09:02 Source: patient Mode of arrival: ambulatory Limitations: no limitations History of Present Illness HPI Narrative: Patient is a 40-year-old male who presents the ED with report of left lower abdominal pain. Patient reports history of kidney stones. States began having pain on his left side around 3 weeks ago. Was seen in the ED here on 09/26 and 09/29 and diagnosed with a 4mm L UPJ stone. Patient does not feel he has passed this kidney stone yet. He was woken up from his sleep this morning with pain in his left lower abdomen/left groin region. Tried taking Tylenol without improvement. Reported having difficulty urinating. Prompted here for further evaluation. Denies gross hematuria, fevers, vomiting. Has had some nausea associated with the pain. States he received a call from the urology office on Sunday, but has not called back. Related Data Allergies Allergy/AdvReac Type Severity Reaction Status Date / Time prochlorperazine AdvReac Unknown Muscle Verified 10/12/25 09:05 Spasms Review of Systems Review of Systems: All systems reviewed & are unremarkable except as noted in HPI. 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 HEAD: Normocephalic, atraumatic. RESPIRATORY: Airway patent, respirations nonlabored. Clear to auscultation bilaterally, no rales, rhonchi, wheezing. CARDIOVASCULAR: Regular rate and rhythm without murmurs, rubs, or gallops. ABDOMINAL: Soft, mild TTP in LLQ/suprapubic region, nondistended. Normoactive BS. MUSCULOSKELETAL: Moves all extremities. No gross deformities. SKIN: Warm, dry, normal color. NEURO: A&O X3. Speech clear. Cranial nerves II-XII grossly intact. Steady gait. No ataxic movements. PSYCHIATRIC: Appropriate mood and affect. Normal interaction. Course Vital Signs Vital signs: Vital Signs Temperature 97.6 F 10/12/25 09:01 Pulse Rate 76 10/12/25 09:01 Respiratory Rate 20 10/12/25 09:01 Blood Pressure 160/94 H 10/12/25 09:01 Pulse Oximetry 99 10/12/25 09:01 Oxygen Delivery Room Air 10/12/25 09:01 Temperature 97.6 F 10/12/25 09:01 Pulse Rate 69 10/12/25 11:55 Respiratory Rate 16 10/12/25 11:55 Blood Pressure 142/85 H 10/12/25 11:55 Pulse Oximetry 98 10/12/25 11:55 Oxygen Delivery Room Air 10/12/25 09:[address] [facility] MDM Narrative Medical decision making narrative: Patient presented to ED with left lower abdominal pain that woke him from his sleep today, history of kidney stones, recently diagnosed with left proximal ureteral stone and does not feel he has passed this. Vital signs stable upon arrival. Patient in no acute francia distress upon my evaluation. Cbc without leukocytosis. CMP unremarkable. Stable kidney function. UA with evidence of blood, but no signs of infection. CT scan of abdomen/pelvis was obtained: IMPRESSION: 1. Mild hydronephrosis left kidney due to 5 mm stone at UVJ, that has progressed from UPJ on prior scan. 2. Small bilateral nephrolithiasis. Discussed lab and imaging findings with patient. Pain is controlled at this time. He is resting comfortably. Discussed case with Dr. Chapman, urology, advised okay for outpatient follow-up, advised to call stone number for follow-up. Will prescribe short course of pain medication for home as well as Flomax. Discussed strict return precautions. Patient is in agreement with plan, feels comfortable going home. Discharged in stable condition. Differential Diagnosis Differential Diagnosis: Kidney stone, hydronephrosis, UTI, ureteral spasm, constipation, diverticulitis Medical Records I have reviewed the following patient records and this information was taken into consideration when formulating the assessment and plan.: previous labs, previous ER visits, previous hospitalizations and previous clinic visits Lab Data MDM Lab Attestation statement: I personally reviewed the patient's lab results. 10/12/25 09:10 10/12/25 09:10 Labs: Lab Results 10/12/25 Range/Units 09:10 WBC 4.9 (4.5-10.0) K/mm3 RBC 4.83 (4.6-6.20) M/mm3 Hgb 14.7 (14.0-18.0) g/dL Hct 41.8 L (42.0-52.0) % MCV 86.5 (80-100) fl MCH 30.4 (26-34) pg MCHC 35.2 (32-36) g/dl RDW 12.4 (11.5-14.5) % Plt Count 216 (150-375) k/mm3 MPV 9.8 (7.4-10.4) fl Immature Gran % (Auto) 0.4 (0-0.5) % Neut % (Auto) 58.9 (45.5-73.1) % Lymph % (Auto) 30.5 (18.3-44.2) % [place] % (Auto) 6.1 (2.6-8.5) % Eos % (Auto) 3.1 (0-4.4) % Baso % (Auto) 1.0 (0.2-1.2) % Lymph # (Auto) 1.50 (0.9-3.2) K/mm3 [place] # (Auto) 0.3 (0.1-0.6) K/mm3 Eos # (Auto) 0.2 (0-0.3) K/mm3 Baso # (Auto) 0.1 (0.0-0.1) K/mm3 Abs Immat Gran (auto) 0.02 (0.00-0.031) K/mm3 Absolute Neuts (auto) 2.9 (1.3-6.7) K/mm3 Absolute Nucleated RBC 0.000 (0.0-0.012) K/mm3 Nucleated RBC % 0.0 (0.0-0.2) % Sodium 133 L (137-145) mmol/L Potassium 4.1 (3.4-5.0) mmol/L Chloride 100 (98-107) mmol/L Carbon Dioxide 25 (22-30) mmol/L Anion Gap 8 (4-12) mmol/L BUN 15 (9-20) mg/dL Creatinine 0.95 (0.7-1.3) mg/dL Estim Creat Clear Calc 99 ml/min Estimated GFR > 60 (59 - ) Glucose 102 (65-110) mg/dL Calcium 9.0 (8.4-10.2) mg/dL Total Bilirubin 0.7 (0.2-1.3) mg/dL AST 21 (17-59) U/L ALT 23 (6-50) U/L Alkaline Phosphatase 95 (38-126) U/L Total Protein 7.4 (6.3-8.2) g/dL Albumin 4.3 (3.5-5.1) g/dL Urine Color Yellow (Yellow) Urine Appearance Clear (Clear) Urine pH 7.0 (5.0-9.0) Ur Specific [place] 1.005 (1.001-1.035) Urine Protein Negative (Negative) mg/dL Urine Glucose (UA) Negative (Negative) mg/dL Urine Ketones Negative (Negative) mg/dL Ur Blood (Man) 3+ H (Negative) Urine Nitrate Negative (Negative) Urine Bilirubin Negative (Negative) Urine Urobilinogen 0.2 (<2.0) mg/dL Leukocyte Esterase Rfl Negative (Negative) ALICIA/UL Urine RBC 6-10 H (0-2) /hpf Urine WBC 0-5 (0-3) /hpf Ur Squamous Epith Cells None seen (Few) /hpf Urine Bacteria None seen /hpf Urine Casts 0-2 Imaging Data Attestation: I personally reviewed and interpreted this imaging study as follows: Radiologist's impression: ITS Impressions Abdomen/Pelvis CT 10/12/25 10:24 IMPRESSION: 1. Mild hydronephrosis left kidney due to 5 mm stone at UVJ, that has progressed from UPJ on prior scan. 2. Small bilateral nephrolithiasis. Discharge Plan Discharge Clinical Impression: Calculus of distal left ureter Patient Disposition: Home Condition: Stable Instructions: Antibiotic Form, Kidney Stones (ED), Renal Colic (ED) Additional Instructions: Take Flomax daily as prescribed. Continue Tylenol and Ibuprofen as needed for pain. [place] as needed for more severe pain. Zofran for nausea. Stay well hydrated. Strain urine to collect stone. Call Urology or direct stone line ([phone]) to make a follow-up appointment for further care. Return to the ED if you experience worsening or severe pain, unable to keep down food/drink, fevers, uncontrollable nausea/vomiting, unable to urinate, or any other symptoms of concern. Patient Language: Gambian Prescriptions: New hydrocodone-acetaminophen 5-325 mg tablet 1 tablet PO Q6H PRN (Reason: pain) Qty: 15 0RF ondansetron 4 mg tablet,disintegrating 4 mg PO Q8H PRN (Reason: nausea and vomiting) Qty: 15 0RF tamsulosin 0.4 mg capsule 0.4 mg PO DAILY 7 Days Qty: 7 0RF No Action ketorolac 10 mg tablet 10 mg PO Q8H PRN (Reason: pain) Qty: 14 0RF Rx Instructions: maximum total duration of 5 days from all oral, intranasal, or parenteral formulations tamsulosin 0.4 mg capsule 0.4 mg PO DAILY Qty: 7 0RF hydrocodone-acetaminophen 5-300 mg tablet 1 tablet PO Q6H PRN (Reason: pain) Qty: 10 0RF ondansetron 4 mg tablet,disintegrating 4 mg PO Q6H PRN (Reason: nausea and vomiting) Qty: 14 0RF Follow-up/Referrals: Melo Chapman MD [Physician, Urology] Melba,MAURICE Espinoza [Primary Care Provider, Unknown] Stand Alone Forms: Work/School Release IP Time of Disposition: 11:45
--- OUTSIDE RECORDS SUMMARY | 2025-10-12 10:39 | XMS_ITS | Clinical Summary ---
Author Organization [facility] [employer] [facility] lin Address [address] [place] [address] Care Team Providers Care Shutdown Planner Name Role Phone No, Pcp PRODUCTION SUPERVISOR TRAINEE Primary Care Provider Unavailabl e Social History Tobacco Use Types Packs/Day Years Used Date Smoking Tobacco: Never Assessed Sex and Gender Information Value Date Recorded Sex Assigned at Not on file Legal Sex Male 10:03 AM EDT Gender Identity Not on file Sexual Orientation Not on file Plan of Treatment Not on file Medical Devices Not on file Care Teams Shutdown Planner Relationship Specialty Start Date End Date No, Pcp, PRODUCTION SUPERVISOR TRAINEE N/A Do not use PCP - General Family Medicine 07/19/20
--- OUTSIDE RECORDS SUMMARY | 2025-10-12 10:39 | XMS_ITS | Clinical Summary ---
Author Organization [facility] Care Team Providers Care Associate Designer Name Role Phone Unavailable Primary Care Provider Unavailabl e Social History Tobacco Use Types Packs/Day Years Used Date Smoking Tobacco: Never Assessed Sex and Gender Information Value Date Recorded Sex Assigned at Not on file Legal Sex Male 1:06 PM CIO Gender Identity Not on file Sexual Orientation Not on file Plan of Treatment Health Maintenance Due Date Last Done Comments Hepatitis C Virus (HCV) Screening 1984 TdaP Immunization 1984 Varicella Immunization (1 of 2 - 13+ 2-dose series) 1997 Hepatitis B Immunization (3 of 3 - 3-dose series) 11/01/2001 09/06/2001, 06/02/1986 Influenza Immunization (#1) 2025 SARS-COV-2 Immunization ( - 2024- season) 2025 Respiratory Syncytial Virus (RSV) Immunization (Adult) (1 - 1-dose 75+ series) 2059 DTaP/Tdap/Td Immunization Discontinued 1997, 04/26/1989, 11/11/1985, Additional history exists Human Papillomavirus (HPV) Immunization (No Doses Required) Completed Meningococcal Immunization (ACWY) Aged Out No longer eligible based on patient's age to complete this topic Pneumococcal Immunization Combined Aged Out No longer eligible based on patient's age to complete this topic Rotavirus Immunization Aged Out No lo nger eligible based on patient's age to complete this topic
--- OUTSIDE RECORDS SUMMARY | 2025-10-12 10:39 | XMS_ITS | Clinical Summary ---
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 Device Identifier Shelf Expiration Date Model / Serial / Lot Synthes .455s Expert 10mm 375mm Cannulated Proximal Bend Tibial Round Nail - [id number] Implanted:Qty: 2 on 09/06/2018 by Sergio Johnson MD at [facility] Left: Tibia Synthes I 04.034.455S / / Synthes 204.840 3.5mm 6mm 40mm 2.5mm Self Tap Small Hexagonal Socket Low Profile - [id number] Implanted:Qty: 1 on 09/06/2018 by Sergio Johnson MD at [facility] Left: Tibia Synthes I 204.840 / / Synthes 04.005.528 5mm 4.3mm 38mm Lock Self Tap Blunt Tip 2 Lead Tibial T25 Full - [id number] Implanted:Qty: 1 on 09/06/2018 by Sergio Johnson MD at [facility] Left: Tibia Synthes I 04.005.528 / / Synthes 04.005.526 5mm 4.3mm 36mm Lock Self Tap Blunt Tip 2 Lead Tibial T25 Full - [id number] Implanted:Qty: 1 on 09/06/2018 by Sergio Johnson MD at [facility] Left: Tibia Synthes I 04.005.526 / / Synthes 04.005.522 5mm 4.3mm 32mm Lock Self Tap Blunt Tip 2 Lead Tibial T25 Full - [id number] Implanted:Qty: 1 on 09/06/2018 by Sergio Johnson MD at [facility] Left: Tibia Synthes I 04.005.522 / / Synthes 04.005.534 5mm 4.3mm 44mm Lock Self Tap Blunt Tip 2 Lead Tibial T25 Full - [id number] Implanted:Qty: 2 on 09/06/2018 by Sergio Johnson MD at [facility] Left: Tibia Synthes I 04.005.534 / / Insurance [facility]PP[facility] Address: [address] [address] [place] [address] [id number] [place] [address] [facility] Address: [address] [address] [place] [address] [phone] [place] [address] Advance Directives For more information, please contact: [phone] * Full Code (Latest Code Status on File) Date Activated Date Inactivated Comments 09/06/2018 12:45 PM 09/08/2018 4:27 PM Care Teams Financial Sales Consultant Relationship Specialty Start Date End Date Olga Reilly PA PCP - General Physician Steel Fabricator 08/29/18
[2025-10-12 11:55] VITALS: BP 142/85; PULSE 69; RESP 16; O2SAT 98
== END 2025-10-12 11:56 | disposition home or self-care (01) ==
PROVIDERS: Emergency Medicine; Emergency Provider Physician Assistant; PCP Physician Assistant
DX: N13.2 Hydronephrosis with renal and ureteral calculous obstruction (principal); Z87.442 Personal history of urinary calculi
CPT/HCPCS: 36415; 74176; 80053; 81001; 85025; 96361; 96374; 96375; 99284; J1171; J2405; J7030